=== PATIENT | male | born 1960 | race Caucasian/White ===

== ENCOUNTER 2017-05-01 23:48 | Observation (INO) | payer OTHER ==
[~2017-05-01] VITALS: Ht 182.9 cm; Wt 111.1 kg
[2017-05-02 00:24] LABS: HEMATOCRIT 39.9 % (38.0-50.0); MCH 24.7 PG (29.0-34.0); MCHC 31.8 G/DL (30.0-36.0); MCV 77.6 FL (86-99); MEAN PLAT.VOLUME 10.3 uM^3 (9.0-12.4); PLATELET COUNT 231 K/uL (156-360); RBC DIS.WIDTH-CV 14.5 % (11.8-14.6); RBC DIS.WIDTH-SD 40.1 % (39-53); RED BLOOD COUNT 5.14 M/uL (4.00-5.50)
[2017-05-02 00:34] LABS: CHLORIDE 105 mEq/L (99-109); SODIUM 138 mEq/L (136-147)
[2017-05-02 00:35] LABS: GLUCOSE 125 mg/dL (70-99)
[2017-05-02 00:37] LABS: ANION GAP 8 MEQ/L (2-14)
[2017-05-02 00:39] LABS: GFR ESTIMATE (CALCULATED) > 59 mL/min/
[2017-05-02 00:40] LABS: UREA NITROGEN (BUN) 21 mg/dL (9-23)
[2017-05-02 00:42] LABS: LIPASE 24 U/L (1.0-51.0)
[2017-05-02 00:45] LABS: TROP-I INTERPRETATION NEGATIVE; TROPONIN-I < 0.01 ng/mL (0.0-0.30)
[2017-05-02 01:58] LABS: TOTAL BILIRUBIN 0.8 mg/dL (0.0-1.0)
[2017-05-02 01:59] LABS: ALKALINE PHOSPHATASE 71 IU/L (3-129); D-DIMER ELISA 0.27 mg/L FEU (< 0.57); SERUM ETHYL ALCOHOL < 10 mg/dL
[2017-05-02 02:02] LABS: DIRECT BILIRUBIN 0.2 mg/dL (0.0-0.3)
[2017-05-02 07:40] VITALS: BP 125/79
[2017-05-02 08:13] LABS: HEMATOCRIT 37.5 % (38.0-50.0); MCH 24.5 PG (29.0-34.0); MCHC 31.5 G/DL (30.0-36.0); MEAN PLAT.VOLUME 9.6 uM^3 (9.0-12.4); PLATELET COUNT 203 K/uL (156-360); RBC DIS.WIDTH-CV 14.4 % (11.8-14.6); RBC DIS.WIDTH-SD 40.1 % (39-53); RED BLOOD COUNT 4.81 M/uL (4.00-5.50); WHITE BLOOD COUNT 7.7 K/uL (4.1-10.2)
[2017-05-02 09:01] LABS: ALKALINE PHOSPHATASE 62 IU/L (3-129); ANION GAP 8 MEQ/L (2-14); CHLORIDE 105 MEQ/L (99-109); GFR ESTIMATE (CALCULATED) > 59 mL/min/; GLUCOSE 119 mg/dL (70-99); POTASSIUM 4.1 MEQ/L (3.7-5.4); SAMPLE HEMOLYSIS CHECK 0; SAMPLE ICTERIC CHECK 0; SAMPLE LIPEMIA CHECK 0; SODIUM 140 MEQ/L (136-147); TOTAL BILIRUBIN 0.6 MG/DL (0.0-1.0); UREA NITROGEN (BUN) 18 mg/dL (9-23)
[2017-05-02 09:14] LABS: TROP-I INTERPRETATION NEGATIVE; TROPONIN-I < 0.01 ng/mL (0.0-0.30)
[2017-05-02] MEDS ORDERED: OMEPRAZOLE40 M1 PO (10:07)
[2017-05-02] MEDS ORDERED: VITAMIN C500 M1 PO (10:07)
[2017-05-02] MEDS ORDERED: ASPIR-LOW81 MG PO (10:31)
[2017-05-02 11:21] VITALS: BP 155/83
[2017-05-02 13:45] LABS: TROP-I INTERPRETATION NEGATIVE; TROPONIN-I < 0.01 ng/mL (0.0-0.30)
== END 2017-05-02 14:32 | disposition home or self-care (01) ==
LOC: EME 23:48 → EDOF 05-02 05:53 → 5WEST 05-02 07:19
PROVIDERS: Internal Medicine
DX: R07.89 Other chest pain (principal); K21.9 Gastro-esophageal reflux disease without esophagitis; D50.9 Iron deficiency anemia, unspecified; F10.10 Alcohol abuse, uncomplicated; E66.9 Obesity, unspecified; Z68.33 Body mass index [BMI] 33.0-33.9, adult; Z82.49 Family history of ischemic heart disease and other diseases of the circulatory system; I10 Essential (primary) hypertension
CPT/HCPCS: 71020; 80048; 80053; 80076; 83690; 84484; 85027; 85379; 93005; 99281; 99285; G0378; G0480; J1644; J3411; J3475; J7030; S0028